=== PATIENT | female | born 1955 | race Caucasian/White ===

== ENCOUNTER → 2017-01-11 | Outpatient (CLI) | payer OTHER ==
--- NOTE | 2017-01-11 11:07 | RAD ---
Bone densitometry scan, 01/11/2017: History: Osteopenia, ovarian failure The lumbar spine and right hip were examined utilizing a DEXA technique. The bone mineral density in the lumbar spine as measured from the L1-L4 levels is 1.03 g/sq cm. This yields a T score of -1.3 compatible with osteopenia. The total T score at the right hip is -0.3 which is considered to be in the normal range. IMPRESSION: Osteopenia in the lumbar spine.
== END | disposition home or self-care (01) ==
LOC: DXRAD 09:46
PROVIDERS: ATTEND Family Medicine
DX: M85.88 Other specified disorders of bone density and structure, other site (principal); E28.39 Other primary ovarian failure
CPT/HCPCS: 77080